=== PATIENT | male | born 1990 | race Caucasian/White ===

== ENCOUNTER 2017-01-15 18:13 | Emergency (ER) | payer OTHER ==
[~2017-01-15] VITALS: Ht 177.8 cm; Wt 72.7 kg
[2017-01-15 18:22] VITALS: BP 160/96; PULSE 118; RESP 16; O2SAT 95
--- NOTE | 2017-01-15 20:00 | ED.REPORT ---
HPI-Psychiatric Illness Date of Service Jan 15, 2017 ED Provider: Sage Elmore PA-C Mann is a 26-year-old male brought in by his family with concern for ongoing opiate abuse, alcohol abuse and behavior issues. Family complains that the patient continues to use prescription opiates, though he has been stating that he does not. They also complain that he drinks alcohol. Sister's concern is been scratching on his arms and is expressing interest suicide to her. Patient recently moved back in with the family. In private conversation patient states he is here at the request of his family, and he would like to "not worry about drugs and alcohol, I just want to be part of the family." He denies suicidality , admitting that he made the comment to his sister but he did not mean it. He admits to a previous episode 4-5 years ago in which he took 10-12 Vicodin and had his father's handgun with the intention of killing himself. He reports that he passed out before he could do it. He reports passing thoughts of suicide but no serious consideration or plan. He denies homicidal ideation, he also denies hallucinations. He admits a history of depression but denies other diagnoses. Admits access to firearms at home. He has not been previously hospitalized. Patient admits to often using 10-15 mg of oxycodone every 4-5 hours, but states he has not used in approximately 10 days. He reports consuming several partial drinks of alcohol on the January. Family adds however that his drinking has previously landed him in the hospital at [facility]. They also reported a history of homelessness. Family is interested in placement and the patient is interested in treatment options. Family reports privately that the patient is not welcome to return home. Patient reports a history of Scheuermann's disease which causes some back pain but denies other complaints. Nursing Notes Stated Complaint: MENTAL HEALTH/ADDICTION Chief Complaint: Substance Abuse Nursing Notes Reviewed: Yes Allergies: Coded Allergies: cyclobenzaprine (Verified Allergy, Unknown, elevated temp, 01/15/17) Scheduled Ondansetron ODT (Ondansetron ODT) 8 Mg Tab.rapdis 8 MG PO QID Scheduled PRN Clonidine (Clonidine) 0.2 Mg Tablet 0.2 MG PO BID PRN PRN Withdrawal Symptoms Ibuprofen (Ibuprofen) 600 Mg Tablet 600 MG PO QID PRN PRN For Pain General Time Seen by MD: 19:20 Chief Complaint Other (substance abuse) Risk-Psychiatric Illness Suicide Risk Stratification Suicide Risk Factors - Adult: : Access to firearms: Alcohol use: Previous attempt: Substance abuse RF Statements: Risk factors reviewed Past Medical History Past Medical History Scheuermann's disease Review of Systems General: Denies fever, chills, malaise. HEENT: Denies congestion, headache, sore throat. Respiratory: Denies dyspnea, cough, shortness of breath, wheezing. Cardiovascular: Denies chest pain, palpitations. Gastrointestinal: Denies vomiting, diarrhea, abdominal pain. Genitourinary: Denies frequency, urgency, dysuria, hematuria. Otherwise as noted in HPI. Physical Exam General: Well appearing, well developed, well nourished, no acute distress. Head: Atraumatic, normocephalic. Eyes: No scleral icterus or injection. No discharge. Vision grossly intact. ENT: Voice clear, hearing grossly intact. Respiratory: Regular rate and rhythm. Breath sounds present, clear to auscultation and equal bilaterally. No respiratory distress. No increased work of breathing, speaks in complete sentences. Cardiovascular: Regular rate and rhythm, without murmur, gallop or rub. No pedal edema. Gastrointestinal: Abdomen flat and non-tender without guarding or rebound. Bowel sounds normoactive. Skin: Warm and dry. Neurological: Grossly nonfocal. Psychological: Alert and oriented. Speech appropriate, linear and logical. Behavior appropriate. Initial Vital Signs Vital Signs (First) Date Time Temp Pulse Resp B/P Pulse Ox O2 Delivery O2 Flow Rate FiO2 01/15/17 18:22 37.2 118 16 160/96 95 Room Air Tachycardic, hypertensive Re-Eval/Medical Decision Med Decision/Clinical Course 26-year-old male with a history of homelessness, alcohol abuse, opiate abuse presents to emergency department with his family, who are seeking his placement and treatment facility. Patient admits to opioid, alcohol abuse. He is amenable to treatment. Denies suicidal ideation, homicidal ideation or hallucinations. Physical examination reveals tachycardia and hypertension otherwise benign. Urine tox positive only for cocaine, breathalyzer 0. Patient is alert, oriented , responsive and appropriate, if a bit odd and sleepy appearing. Speech is normal, not tangential or pressured. I feel he is medically cleared. Discussed the case with RIOS Rivera, who met with and examined the patient. He discussed the case independently with the family and the patient. There is agreement that crisis respite may be an appropriate placement for him. A bed is available and the patient is currently screening for placement. Care transferred to Dr. Weller at shift change. Discharge & Departure Shift Change Sign-Out Patient Care Transferred: Yes (Dr. Weller) Discussed Complaint(s): Yes Laboratory Evaluation: Lab evaluation discussed Impression: Primary Impression: Substance abuse Referrals: OTHER,PHYSICIAN (PCP) Eleno Sigala MD (Family) EDSupervising Provider for APC: Leonard Weller MD, Seth PA-C Jan 15, 2017 20:00
[2017-01-15] MEDS ORDERED: LORazepam 1 mg Tablet PO ONE (23:40)
[2017-01-15] MEDS ORDERED: _LORazepam 1 mg Tablet PO PRN (23:45)
[2017-01-15] MEDS ORDERED: _Ondansetron ODT 4 mg Tablet PO PRN (23:45)
[2017-01-15] MEDS ORDERED: IBUP-1827 PO (23:46)
[2017-01-15] MEDS ORDERED: ONDA8TAB10 PO (23:46)
[2017-01-15] MEDS ORDERED: CLON0.2T PO (23:46)
[2017-01-15] MEDS: Ondansetron 8 mg ODT Tablet PO ONE ×2 (23:53→23:56)
[2017-01-16 00:49] VITALS: BP 155/87; PULSE 114; RESP 16; O2SAT 95
[2017-01-16 01:10] VITALS: BP 155/87; PULSE 114; RESP 16; O2SAT 95
--- NOTE | 2017-01-16 09:46 | NUR ---
Chemical dependency assessment Mann White 01/16/17 Reason for referral: Patient presents to the ED with reported opiate abuse requesting evaluation and treatment options. History of substance use: Pt reports that he has used opiates for many years but cannot describe the extent of his use. Pt reports last use a "few days ago" and that he has used cocaine 3-4 years ago. Pt nodding off during assessment and UDS positive only for Cocaine. History of treatment: Pt has no history of drug or alcohol treatment at this point and pt's family only recently aware of the severity of pt's use. History of withdrawal symptoms: Pt minimizes his use and does not describe any withdrawal symptoms. Family history: Pt's aunt struggled with and subsequently from substance abuse. History of sobriety and supports: Pt cannot articulate any penitentiary sobriety recently. Pt's family is present and have given pt an "ultimatum" that he get clean or they will withdraw their support. Pt's family confirms this with SECURITIES ATTORNEY that if pt does not cease his use they will not be a part of pt's life. Patient's perceptions of the consequences of his use: Pt is present in the ED at the request of his parents. Pt states an understanding of what he has lost from his substance use, however he questions procedure of detox and referral and is attempts to assert more control over his recovery versus following recommendations. Unclear if pt would be requesting treatment without "ultimatum" from his parents. Suicide risk assessment: Pt reports underlying depression and previous aborted suicide attempt 3-4 years ago with a firearm. Pt denies active suicidal ideations, homicidal ideations and perceptual disturbances. No history of psychiatric treatment or inpatient care. Suicide risk low-moderate. Recommendations: SECURITIES ATTORNEY met with pt at bedside who appears under the influence, however two UDS confirm no opiates in his urine. There was question of pt deliberately diluting his urine, however again his repeat UDS confirmed no opiates. Pt is here at the request of his family which certainly questions his motivation, however he ultimately agrees to screen and complete detox at crisis respite to be transferred at 0100. SECURITIES ATTORNEY discussed process with pt's family and provided active listening and support. ED MD aware and in agreement with plan to discharge to detox. RIOS Cox
== END 2017-01-16 01:10 | disposition home or self-care (01) ==
LOC: SED 18:13
DX: F11.20 Opioid dependence, uncomplicated (principal); Z88.8 Allergy status to other drugs, medicaments and biological substances; Z59.0 Homelessness